=== PATIENT | male | born 1955 | race African-American/Black ===

== ENCOUNTER 2022-02-15 11:55 | Inpatient (IN) ==
[2022-02-15] MEDS ORDERED: SODIUM CHLORIDE 0.9% 1,000 ML IV STA (13:53)
[2022-02-15] MEDS ORDERED: ONDANSETRON 4 MG/2 ML VIAL IV STA (13:53)
[2022-02-15] MEDS ORDERED: MORPHINE 10 MG/1 ML VIAL IV STA (13:54)
[2022-02-15] MEDS ORDERED: MORPHINE 2 MG/1 ML SYRINGE IV STA (13:55)
[2022-02-15 14:01] LABS: Basophils % 0.2 % (0.0-0.8); Eosinophils % 0.2 % (0.00-10.9); Hematocrit 47.2 VOL% (42.0-52.0); Hemoglobin 15.3 GM/DL (14.0-18.0); Immature Granulocytes % 0.4 %; Immature Granulocytes Absolute 0.03 #; Lymphocytes # 1.3 10*3/uL (1.4-4.0); Lymphocytes % 15.9 % (21.2-54.2); Mean Corpuscular HGB Conc 32.4 GM/DL (32-36); Mean Corpuscular Volume 84.7 FL (87-102); Mean Platelet Volume 9.3 FL (9.6-12.0); Monocytes # 0.6 10*3/uL (0.11-0.8); Monocytes % 7.1 % (1.7-12.7); Neutrophils % 76.2 % (38.7-73.9); Platelet Count 195 T/CUMM (130-400); Red Blood Count 5.57 MC/CUMM (3.8-5.5); Red Cell Distribution Width 13.7 % (9.3-17.3); White Blood Count 8.1 T/CUMM (4-12)
[2022-02-15 14:26] LABS: Albumin 3.9 G/DL (3.4-5.0); Bilirubin,Total 0.8 MG/DL (0.20-1.00); Osmolality,Calculated 281.3 MOS/KG (273-304); Potassium 3.4 MMOL/L (3.5-5.1); Total Protein 7.2 G/DL (6.4-8.2)
[2022-02-15] MEDS ORDERED: ONDANSETRON 4 MG/2 ML VIAL IV PRN (17:03)
[2022-02-15] MEDS ORDERED: MORPHINE 2 MG/1 ML SYRINGE IV PRN (17:03)
[2022-02-15] MEDS ORDERED: hydrALAZINE 20 MG/1 ML VIAL IV PRN (17:03)
[2022-02-15] MEDS: PIPERACILLIN/TAZOBACTAM 3,375 MG in SODIUM CHLORIDE 0.9% 100 ML IV SCH (18:18)
[2022-02-15] MEDS: ACETAMINOPHEN 325 MG TABLET PO PRN (22:14)
[2022-02-15] MEDS: LACTATED RINGERS 1,000 ML IV SCH (23:43)
[2022-02-16] MEDS: PIPERACILLIN/TAZOBACTAM 3,375 MG in SODIUM CHLORIDE 0.9% 100 ML IV SCH (03:58)
[2022-02-16 05:55] LABS: Basophils % 0.5 % (0.0-0.8); Eosinophils # 0.1 10*3/uL (0.0-0.87); Eosinophils % 1.5 % (0.00-10.9); Hematocrit 43.4 VOL% (42.0-52.0); Immature Granulocytes % 0.3 %; Immature Granulocytes Absolute 0.02 #; Lymphocytes # 1.3 10*3/uL (1.4-4.0); Lymphocytes % 20.6 % (21.2-54.2); Mean Corpuscular HGB Conc 32.3 GM/DL (32-36); Mean Corpuscular Volume 85.4 FL (87-102); Mean Platelet Volume 9.2 FL (9.6-12.0); Monocytes # 0.6 10*3/uL (0.11-0.8); Neutrophils % 68.1 % (38.7-73.9); Platelet Count 184 T/CUMM (130-400); Red Blood Count 5.08 MC/CUMM (3.8-5.5); Red Cell Distribution Width 13.6 % (9.3-17.3); White Blood Count 6.1 T/CUMM (4-12)
[2022-02-16 06:15] LABS: Calcium 8.8 MG/DL (8.5-10.1); Osmolality,Calculated 280.3 MOS/KG (273-304); Potassium 3.4 MMOL/L (3.5-5.1)
[2022-02-16] MEDS: LACTATED RINGERS 1,000 ML IV SCH ×2 (07:52→23:55)
[2022-02-16] MEDS: PANTOPRAZOLE 40 MG TABLET PO SCH (08:28)
[2022-02-16] MEDS: VALSARTAN 80 MG TABLET PO SCH (08:28)
[2022-02-16] MEDS ORDERED: CIPROFLOXACIN 100 MG/ML 100 ML/BOTTLE PO SCH (09:30)
[2022-02-16] MEDS ORDERED: POTASSIUM CHLORIDE 20 MEQ TABLET PO ONE (09:45)
[2022-02-16] MEDS: CIPROFLOXACIN 500 MG TABLET PO SCH ×2 (10:21→17:16)
[2022-02-16] MEDS: metroNIDAZOLE 500 MG TABLET PO SCH ×2 (12:02→17:16)
[2022-02-16] MEDS: ZOLPIDEM 5 MG TABLET PO PRN (21:16)
[2022-02-17 05:54] LABS: Calcium 8.8 MG/DL (8.5-10.1); Osmolality,Calculated 278.3 MOS/KG (273-304); Potassium 3.4 MMOL/L (3.5-5.1)
[2022-02-17 08:16] LABS: Basophils % 0.7 % (0.0-0.8); Eosinophils # 0.1 10*3/uL (0.0-0.87); Eosinophils % 1.6 % (0.00-10.9); Hematocrit 41.6 VOL% (42.0-52.0); Hemoglobin 13.6 GM/DL (14.0-18.0); Immature Granulocytes % 0.3 %; Immature Granulocytes Absolute 0.02 #; Lymphocytes # 1.3 10*3/uL (1.4-4.0); Lymphocytes % 21.8 % (21.2-54.2); Mean Corpuscular HGB Conc 32.7 GM/DL (32-36); Mean Corpuscular Volume 83.9 FL (87-102); Mean Platelet Volume 9.6 FL (9.6-12.0); Monocytes # 0.6 10*3/uL (0.11-0.8); Monocytes % 9.7 % (1.7-12.7); Neutrophils % 65.9 % (38.7-73.9); Platelet Count 184 T/CUMM (130-400); Red Blood Count 4.96 MC/CUMM (3.8-5.5); Red Cell Distribution Width 13.5 % (9.3-17.3); White Blood Count 5.8 T/CUMM (4-12)
[2022-02-17] MEDS: VALSARTAN 80 MG TABLET PO SCH (08:28)
[2022-02-17] MEDS: metroNIDAZOLE 500 MG TABLET PO SCH (08:28)
[2022-02-17] MEDS: PANTOPRAZOLE 40 MG TABLET PO SCH (08:29)
[2022-02-17] MEDS: CIPROFLOXACIN 500 MG TABLET PO SCH (08:29)
[2022-02-17] MEDS: POTASSIUM CHLORIDE 20 MEQ TABLET PO SCH (11:08)
[2022-02-17] MEDS: PIPERACILLIN/TAZOBACTAM 3,375 MG in SODIUM CHLORIDE 0.9% 100 ML IV SCH ×2 (11:09→18:10)
[2022-02-17] MEDS: ZOLPIDEM 5 MG TABLET PO PRN (21:19)
[2022-02-17] MEDS: LACTATED RINGERS 1,000 ML IV SCH (21:20)
[2022-02-18] MEDS: PIPERACILLIN/TAZOBACTAM 3,375 MG in SODIUM CHLORIDE 0.9% 100 ML IV SCH ×3 (01:54→18:30)
[2022-02-18 06:26] LABS: Basophils % 0.6 % (0.0-0.8); Eosinophils # 0.1 10*3/uL (0.0-0.87); Eosinophils % 2.6 % (0.00-10.9); Hematocrit 41.1 VOL% (42.0-52.0); Hemoglobin 13.5 GM/DL (14.0-18.0); Immature Granulocytes % 0.4 %; Immature Granulocytes Absolute 0.02 #; Lymphocytes % 19.9 % (21.2-54.2); Mean Corpuscular HGB Conc 32.8 GM/DL (32-36); Mean Corpuscular Volume 83.4 FL (87-102); Mean Platelet Volume 9.5 FL (9.6-12.0); Monocytes # 0.7 10*3/uL (0.11-0.8); Monocytes % 13.5 % (1.7-12.7); Platelet Count 167 T/CUMM (130-400); Red Blood Count 4.93 MC/CUMM (3.8-5.5); Red Cell Distribution Width 13.4 % (9.3-17.3)
[2022-02-18 06:41] LABS: Calcium 8.6 MG/DL (8.5-10.1); Osmolality,Calculated 276.4 MOS/KG (273-304); Potassium 3.7 MMOL/L (3.5-5.1)
[2022-02-18] MEDS: VALSARTAN 80 MG TABLET PO SCH (08:46)
[2022-02-18] MEDS: PANTOPRAZOLE 40 MG TABLET PO SCH (08:47)
[2022-02-18] MEDS: POTASSIUM CHLORIDE 20 MEQ TABLET PO SCH (08:48)
[2022-02-18] MEDS: LACTATED RINGERS 1,000 ML IV SCH (10:31)
[2022-02-18] MEDS: PANTOPRAZOLE 40 MG VIAL IV SCH (20:46)
[2022-02-18] MEDS: ZOLPIDEM 5 MG TABLET PO PRN (21:41)
[2022-02-19] MEDS: PIPERACILLIN/TAZOBACTAM 3,375 MG in SODIUM CHLORIDE 0.9% 100 ML IV SCH ×2 (02:00→10:06)
[2022-02-19 05:26] LABS: Basophils % 0.6 % (0.0-0.8); Eosinophils # 0.1 10*3/uL (0.0-0.87); Eosinophils % 2.7 % (0.00-10.9); Hematocrit 41.3 VOL% (42.0-52.0); Hemoglobin 13.6 GM/DL (14.0-18.0); Immature Granulocytes % 0.2 %; Immature Granulocytes Absolute 0.01 #; Lymphocytes # 1.1 10*3/uL (1.4-4.0); Lymphocytes % 22.8 % (21.2-54.2); Mean Corpuscular HGB Conc 32.9 GM/DL (32-36); Mean Corpuscular Volume 83.1 FL (87-102); Mean Platelet Volume 9.5 FL (9.6-12.0); Monocytes # 0.6 10*3/uL (0.11-0.8); Monocytes % 12.7 % (1.7-12.7); Platelet Count 182 T/CUMM (130-400); Red Blood Count 4.97 MC/CUMM (3.8-5.5); Red Cell Distribution Width 13.4 % (9.3-17.3); White Blood Count 4.7 T/CUMM (4-12)
[2022-02-19] MEDS: ACETAMINOPHEN 325 MG TABLET PO PRN (05:37)
[2022-02-19 05:51] LABS: Potassium 3.3 MMOL/L (3.5-5.1)
[2022-02-19] MEDS ORDERED: POTASSIUM CHLORIDE 20 MEQ TABLET PO PRN (06:25)
[2022-02-19] MEDS ORDERED: POTASSIUM CHLORIDE 20 MEQ TABLET PO ONE (09:00)
[2022-02-19] MEDS: VALSARTAN 80 MG TABLET PO SCH (09:06)
[2022-02-19] MEDS: PANTOPRAZOLE 40 MG VIAL IV SCH (09:07)
[2022-02-19 11:36] VITALS: BP 150/80
[2022-02-19] MEDS: LACTATED RINGERS 1,000 ML IV SCH ×2 (14:11→14:12)
== END 2022-02-19 13:42 | disposition home or self-care (01) | DRG 392 ==
LOC: N.ED 11:55 → SUATTDRO 17:01 → N.EDINP 17:01 → INTOOBSV 17:01 → N.EDINP 19:25 → N.3E 22:05 → SUATTDRO 02-17 13:00
PROVIDERS: ADMIT Internal Medicine; ATTEND Internal Medicine